=== PATIENT | female | born 1960 | race Caucasian/White ===

== ENCOUNTER 2022-08-19 05:55 | Day surgery (SDC) | payer BC ==
[~2022-08-19] VITALS: Ht 172.7 cm; Wt 75.0 kg
[~2022-08-19 05:55] MED LIST: ATENOLOL50 MG PO; CRINONE1.45 G1 VAGINAL; CYMBALTA30 MG PO; DHEA50 MG PO; ESTRADIOL0.5 MG PO; FIRST-TESTOSTER60 G1 TD; FISH OIL + D31 EACH PO; FISH OIL 1,0001 EAC2 NG; LORAZEPAM1 MG PO; METHOCARBAMOL500 MG PO; METOPROLOL SUCC25 MG PO; NORCO 5-325 TA1 EACH PO; PERCOCET 5-3251 EACH PO; TOPROL XL50 MG PO; VITAMIN D5000 UNIT PO; VOLTAREN100 GM TOP; ZANAFLEX4 MG PO
[2022-08-19] MEDS ORDERED: LEVOTHYROXINE25 MC1 PO (06:03)
--- NOTE | 2022-08-19 07:12 | NUR ---
C/O NAUSEA AND ZOFRAN GIVEN. SEE NEW ORDER.
--- NOTE | 2022-08-19 08:13 | NUR ---
08/19/22 0813 Araceli Francis 0809-PATIENT ARRIVED TO PACU ON RA RR EVEN. PATIENT REACTIVE TO VERBAL STIMULI OPENING EYES DENIES PAIN OR NAUSEA. RA 99%. SR. IVF INFUSING,. ABDOMEN SOFT.
--- NOTE | 2022-08-21 09:10 | OR ---
[facility] [address], [place] [address] Signed DATE OF OPERATION: 08/19/2022 SURGEON: Baron Gilbert MD PREOPERATIVE DIAGNOSES: 1. Personal history of colonic polyps, age 39 (1999). 2. Minimal internal hemorrhoids and associated skin tags. 3. Maternal grandfather, paternal grandmother, paternal aunt, father, all with colon cancer in her 70s. POSTOPERATIVE DIAGNOSES: 1. 4 mm polyps at 4 cm, 35 cm and 8 cm. 2. Minimal internal hemorrhoids with associated skin tags. PROCEDURE: Colonoscopy with hot biopsy. ESTIMATED BLOOD LOSS: None. INDICATIONS: Mandy is a 61-year-old female, who was asked to see me for a followup colonoscopy. 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 She went through five surgeries until she finally made it to the [facility] in [place], [place]. Dr. Micheline Meng performed the advancement flap and she has done well ever since. She underwent her first colonoscopy in 1999 at age of 39 while in [place], [place]. She had colonic polyps removed at that time. We do not have that pathology report. She has repeated the colonoscopy at age 42 in 2002, at age 45 in 2005 while in [place], [place], and both were negative. I then helped her at age 50 in 2010 where she had two small hyperplastic polyps removed and minimal internal hemorrhoid tissue. She came back in 2015 at the age of 55 and again had minimal internal hemorrhoid tissue with associated skin tags. However, she took an enormous amount of Versed and fentanyl, was awake, talking the whole time and moving around. Consequently, we have switched over to a monitored anesthesia care for Mandy. I think part of that is the lorazepam and tizanidine, she asked to take for her fibromyalgia and anxiety. Again, she used monitored anesthesia care today. She took multiple doses of propofol and eventually was relax and did well during the procedure. We had asked her to continue on the five-year follow up plan because of her family history. Again, we know she has an extensive family history as described above. She always uses Zofran during her prep. She was still nauseated this morning, so we gave her some additional Zofran Electronically Signed By: BARON GILBERT MD 08/21/22 0910 PATIENT NAME: MANDY HERNANDEZ ANN OPERATIVE REPORT DATE OF : 60 REPORT #: [id number] PHYSICIAN: BARON GILBERT MD PCP: EVERT TILLEY PAC REPORT IS CONFIDENTIAL AND NOT TO BE RELEASED WITHOUT AUTHORIZATION [facility] [address], [place] [address] Signed and she said it really helped. She really has no lower GI complaints. In the office, I had given her a pamphlet on colonoscopy. Of course, she is very familiar with that procedure at this time. There is risk including, but not limited to gas bloating, crampy abdominal pain, bleeding, perforation requiring surgery, and missed diagnosis. She had expressed understanding wished to proceed. PROCEDURE NOTE: Mandy was taken into our endoscopy suite and placed in the left lateral decubitus position. She was given monitored anesthesia care with propofol per our nurse cooperer. Again, she took multiple doses of the propofol and was quite comfortable throughout the procedure. A digital rectal exam was performed. She has good sphincter tone and no concerns for any significant external hemorrhoids. There were no masses. The adult colonoscope was introduced and advanced all around into the cecum under direct visualization of camera without difficulty. Her prep was good. We could easily see the appendiceal orifice and ileocecal valve. The scope was then slowly withdrawn. We had used a little extra propofol and abdominal compression to advance the scope into the cecum itself. As the scope was withdrawn, we took multiple photographs. The above-mentioned polyps were easily removed with the help of hot biopsy forceps. Once in the rectum, the scope had been retroflexed and she does have tiny internal hemorrhoid columns and small, so she had skin tags. After this, the gas was suctioned out, the colonoscope removed. Mandy tolerated the procedure quite well. RECOMMENDATIONS: Mandy will follow up in my office in 7 to 14 days to review her results. She will maintain the five-year rotation, given her strong family history. Baron Gilbert MD ALB/MODL /[id number] cc: MD Evert Mattson PA Electronically Signed By: BARON GILBERT MD 08/21/22 0910 PATIENT NAME: MANDY HERNANDEZ ANN OPERATIVE REPORT DATE OF : 60 REPORT #: [id number] PHYSICIAN: BARON GILBERT MD PCP: EVERT TILLEY [facility] REPORT IS CONFIDENTIAL AND NOT TO BE RELEASED WITHOUT AUTHORIZATION [facility] [address] [facility] [place], [place] [address] Signed Copies: BARON GILBERT MD ~ Electronically Signed By: BARNO GILBERT MD 08/21/22 0910 PATIENT NAME: MANDY HERNANDEZ ANN OPERATIVE REPORT DATE OF : 60 REPORT #: [id number] PHYSICIAN: BARON GILBERT MD PCP: EVERT TILLEY PAC REPORT IS CONFIDENTIAL AND NOT TO BE RELEASED WITHOUT AUTHORIZATION
--- NOTE | 2022-08-24 07:10 | PATH ---
[facility] [address] [place], [place] [address] Signed SPECIMEN(S): A COLON POLYP AT 4 CM SPECIMEN(S): B COLON POLYP AT 35 CM SPECIMEN(S): C COLON POLYP AT 8 CM SPECIMEN SOURCE: A. COLON POLYP AT 4 CM B. COLON POLYP AT 35 CM C. COLON POLYP AT 8 CM CLINICAL HISTORY: Colonoscopy. Family history of colon CA. Postop: Polyps, internal hemorrhoids. FINAL PATHOLOGIC DIAGNOSIS: A. Colon polyp at 4 cm: - Hyperplastic polyp (one fragment). B. Colon polyp at 35 cm: - Hyperplastic polyp (one fragment). C. Colon polyp at 8 cm: - Hyperplastic polyp (three fragments). JVR:[id number] MICROSCOPIC EXAMINATION: Histologic sections of all submitted blocks are examined by light microscopy. These findings, together with the gross examination, support the pathologic diagnosis. GROSS DESCRIPTION: Three specimens are received in three containers, labeled "LM." A. The specimen, labeled "LM, colon polyp at 4 cm," is received in formalin and consists of one quintero soft tissue fragment that measures 0.2 cm in greatest dimension. The specimen is entirely submitted in cassette (A1). B. The specimen, labeled "LM, colon polyp at 35 cm," is received in formalin and consists of one quintero soft tissue fragment that measures 0.1 cm in greatest dimension. The specimen is entirely submitted in cassette (B1). C. The specimen, labeled "LM, colon polyp at 8 cm," is received in formalin and consists of three quintero soft tissue fragments that measure 0.1-0.2 cm in greatest dimension. The specimen is entirely submitted in cassette (C1). PATIENT NAME: MERCEDES HERNANDEZ PATHOLOGY DATE OF : 60 REPORT #: [id number] PHYSICIAN: SANDEEP ESQUIVEL PCP: EVERT TILLEY PAC REPORT IS CONFIDENTIAL AND NOT TO BE RELEASED WITHOUT AUTHORIZATION [facility] [address] [place], [place] [address] Signed JS (under the direct supervision of a pathologist) The Gross Description was prepared using a voice recognition system. The report was reviewed for accuracy; however, sound-alike word errors, addition and/or deletions may occur. If there is any question about this report, please contact Client Services. PERFORMING LABORATORY: The technical component was performed by [facility], [address] [place] [id number] (CLIA# [id number]). Professional interpretation was performed by [facility], [address] [place] [id number] (CLIA#: [id number]). Diagnostician: Roe Sal MD Pathologist Electronically Signed 08/21/2022 Copies: ~ PATIENT NAME: MERCEDES HERNANDEZ PATHOLOGY DATE OF : 60 REPORT #: [id number] PHYSICIAN: SANDEEP PATHOLOGY PCP: EVERT TILLEY PAC REPORT IS CONFIDENTIAL AND NOT TO BE RELEASED WITHOUT AUTHORIZATION
== END 2022-08-19 08:45 | disposition home or self-care (01) ==
LOC: DS 05:55 → OPS 05:55 → DS 08:15 → OPS 08:15
PROVIDERS: ATTEND Colon & Rectal Surgery
PROC: 0DBE8ZX Excision of Large Intestine, Via Natural or Artificial Opening Endoscopic, Diagnostic (ICD-10-PCS; principal; 2022-08-19 07:30)
DX: Z12.11 Encounter for screening for malignant neoplasm of colon (principal); K63.5 Polyp of colon; Z80.0 Family history of malignant neoplasm of digestive organs; Z86.010 Personal history of colon polyps; I10 Essential (primary) hypertension; E78.5 Hyperlipidemia, unspecified; E03.9 Hypothyroidism, unspecified; K64.4 Residual hemorrhoidal skin tags; K64.0 First degree hemorrhoids; Z88.5 Allergy status to narcotic agent; Z88.8 Allergy status to other drugs, medicaments and biological substances
CPT/HCPCS: 00811; J2001; J2405; J2704; J7121

== ENCOUNTER 2023-10-07 18:19 | Emergency (ER) | payer BC ==
[~2023-10-07] VITALS: Ht 172.7 cm; Wt 74.8 kg
[~2023-10-07 18:19] MED LIST changes: +LEVOTHYROXINE25 MC1 PO
--- OUTSIDE RECORDS SUMMARY | 2023-10-07 18:20 | XMS ---
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 Cholo has no Care Guidelines for this patient. Alexandr VISIT COUNT (12 MO.) 1 [facility] TOTAL 1 NOTE: Visits indicate total known visits. ED/C VISIT TRACKING (12 MO.) 10/07/2023 18:19 [facility] Yoo [place] TYPE: Emergency COMPLAINT: - RAPID HEART RATE INPATIENT VISIT TRACKING (12 MO.) No inpatient visits to display in this time frame [email or web address]
[2023-10-07 18:56] LABS: BASOPHILS 0.5 % (0-2); EOSINOPHILS 3.6 % (0-6); HEMATOCRIT 40.4 % (35.0-50.0); HEMOGLOBIN 13.7 g/dL (12.0-18.0); LYMPHOCYTES 38.3 % (24-44); MCH 31.5 (27-36); MCHC 33.8 g/dl (30-36); MCV 93.2 fl (81-99); MONOCYTES 11.3 % (0-12); NEUTROPHILS 46.3 % (39-80); PLATELET COUNT 323 K/uL (140-440); RBC 4.33 M/ul (4.3-5.7); RDW 13.8 (10.5-15.0)
[2023-10-07 19:03] LABS: ALBUMIN 3.4 g/dL (3.4-5.0); ALBUMIN/GLOBULIN RATIO 0.71 (1.1-2.4); ANION GAP 15.6 (7-21); BILIRUBIN, TOTAL 0.2 ng/dL (0.2-1.0); BUN/CREATININE RATIO 17.07 (6.0-28.6); CALCIUM 9.3 mg/dL (8.5-10.1); CREATININE, SERUM 0.82 mg/dL (0.55-1.02); POTASSIUM 3.6 mmol/L (3.5-5.1); PROTEIN, TOTAL 8.2 g/dL (6.4-8.2)
[2023-10-07] MEDS ORDERED: ELIQUIS5 M1 PO (19:49)
[2023-10-07 20:25] VITALS: BP 129/62
--- NOTE | 2023-10-09 06:03 | EKG ---
[facility] [address] [facility] [place] [address] Signed Atrial fibrillation with rapid ventricular response ST depression in lateral leads ST \T\ T wave abnormality, consider inferolateral ischemia Abnormal ECG When compared with ECG of 12-AUG-2022 12:08, Atrial fibrillation has replaced Sinus rhythm Vent. rate has increased BY [address] now depressed in Lateral leads Inverted T waves have replaced nonspecific T wave abnormality in Inferior leads T wave inversion less evident in Anterior leads T wave inversion more evident in Lateral leads Confirmed by BONNY AGUILAR MD ([id number]) on 10/09/2023 6:03:03 AM Electronically Signed By: BONNY AGUILAR 10/09/23 0603 PATIENT NAME: MERCEDES HERNANDEZ ANN Electrocardiogram DATE OF : 60 PHYSICIAN: BONNY AGUILAR REPORT #: [id number] REPORT IS CONFIDENTIAL AND NOT TO BE RELEASED WITHOUT AUTHORIZATION
--- NOTE | 2023-10-09 06:06 | EKG ---
[facility] [address] [facility] [place] [address] Signed Normal sinus rhythm Nonspecific ST abnormality Abnormal ECG When compared with ECG of 07-OCT-2023 18:24, (Unconfirmed) Sinus rhythm has replaced Atrial fibrillation Vent. rate has decreased BY [address] no longer depressed in Lateral leads T wave inversion no longer evident in Inferior leads T wave inversion no longer evident in Lateral leads Confirmed by BONNY AGUILAR MD ([id number]) on 10/09/2023 6:05:58 AM Electronically Signed By: BONNY AGUILAR 10/09/23 0606 PATIENT NAME: MERCEDES HERNANDEZ ANN Electrocardiogram DATE OF : 60 PHYSICIAN: BONNY AGUILAR REPORT #: [id number] REPORT IS CONFIDENTIAL AND NOT TO BE RELEASED WITHOUT AUTHORIZATION
== END 2023-10-07 20:29 | disposition home or self-care (01) ==
LOC: ED 18:19
PROVIDERS: Emergency Medicine
DX: I48.0 Paroxysmal atrial fibrillation (principal); I10 Essential (primary) hypertension; Z88.8 Allergy status to other drugs, medicaments and biological substances; Z88.5 Allergy status to narcotic agent; Z79.899 Other long term (current) drug therapy
CPT/HCPCS: 36415; 71045; 80053; 84443; 84484; 85025; 93005; 93010; 96374; 99285-25; J7121; U0002

== ENCOUNTER 2023-10-09 14:38 | Inpatient (IN) | payer BC ==
[~2023-10-09] VITALS: Ht 172.7 cm; Wt 77.0 kg
[2023-10-09] VITALS (7 sets, daily range): BP systolic 106–152; BP diastolic 57–94
[~2023-10-09 14:38] MED LIST changes: +ELIQUIS5 M1 PO; -LORAZEPAM1 MG PO; -VITAMIN D5000 UNIT PO
--- OUTSIDE RECORDS SUMMARY | 2023-10-09 14:40 | XMS ---
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 Cholo has no Care Guidelines for this patient. Alexandr [facility] MO.) [facility] NOTE: Visits indicate total known visits. ED/C VISIT TRACKING (12 MO.) 10[facility]09[facility]2023 14:38 [facility] COMPLAINT: - CHEST PAIN 10/07/2023 18:[address] [facility] OR TYPE: Emergency COMPLAINT: - RAPID HEART RATE DIAGNOSES: - Allergy status to narcotic agent - Allergy status to other drugs, medicaments and biological substances - Essential (primary) hypertension - Other penitentiary (current) drug therapy - Palpitations - Paroxysmal atrial fibrillation INPATIENT VISIT TRACKING (12 MO.) No inpatient visits to display in this time frame [email or web address]
[2023-10-09 14:52] LABS: BASOPHILS 0.7 % (0-2); EOSINOPHILS 2.7 % (0-6); HEMATOCRIT 40.8 % (35.0-50.0); HEMOGLOBIN 13.8 g/dL (12.0-18.0); LYMPHOCYTES 36.3 % (24-44); MCH 31.5 (27-36); MCHC 33.9 g/dl (30-36); MCV 92.9 fl (81-99); MONOCYTES 10.9 % (0-12); NEUTROPHILS 49.4 % (39-80); PLATELET COUNT 313 K/uL (140-440); RBC 4.39 M/ul (4.3-5.7); RDW 13.9 (10.5-15.0)
[2023-10-09 15:02] LABS: INR 1.06 (0.80-1.30); PROTIME 13.3 Sec (11.2-14.2)
[2023-10-09 15:13] LABS: ALBUMIN 3.6 g/dL (3.4-5.0); ALBUMIN/GLOBULIN RATIO 0.75 (1.1-2.4); ALKALINE PHOSPHATASE 118 U/L (46-116); ALT (SGPT) 40 U/L (14-59); ANION GAP 14.9 (7-21); AST (SGOT) 22 U/L (15-37); BILIRUBIN, TOTAL 0.2 ng/dL (0.2-1.0); BUN/CREATININE RATIO 17.07 (6.0-28.6); CALCIUM 9.6 mg/dL (8.5-10.1); CARBON DIOXIDE 26 mmol/L (21-32); CHLORIDE 100 mmol/L (98-107); CREATININE, SERUM 0.82 mg/dL (0.55-1.02); GLOMERULAR FILTRATION RATE,EST 81 mL/min (>60); POTASSIUM 3.9 mmol/L (3.5-5.1); PROTEIN, TOTAL 8.4 g/dL (6.4-8.2); UREA NITROGEN 14 mg/dL (7-18)
[2023-10-09 17:42] LABS: INFLUENZA B NAA NEGATIVE (NEGATIVE); RESPIRATORY SYNCYTIAL VIR NAA NEGATIVE (NEGATIVE)
--- NOTE | 2023-10-09 18:58 | NUR ---
PT ASSISTED TO COMMODE SBA AND BACK TO BED. PT TOLERATED WELL. PT BACK IN BED WITH CALL LIGHT WITHIN REACH AND BELONGINGS AT BEDSIDE. NO FURTHER NEEDS AT THIS TIME.
--- NOTE | 2023-10-09 18:58 | NUR ---
PATIENT ADMITTED TO CCU FOR AFIB W/RVR AROUND 1830. PT ABLE TO STAND AND PIVOT SELF TO CCU BED. PT ON DILT GTT UPON ARRIVAL TO 17.5 MG/HR. PT REMAINS IN AFIB, HR IRRATIC, 110-160s. PT DENIES SHORTNESS OF BREATH. PT DOES REPORT THAT SHE FREQUENTLY HAS "PASSING OUT" SPELLS AT HOME. PT'S RUPA IS WITH PATIENT UPON ARRIVAL. PT ORIENTED TO ROOM. TURKEY SANDWICH BOX PROVIDED. PT UP TO BSC TO VOID X2 AND REPORTS FREQ URINATION. WILL CONTINUE TO MONITOR.
--- NOTE | 2023-10-09 19:26 | NUR ---
REPORT RECEIVED FROM YONI STEEN. PT IS RESTING IN BED AWAKE WITH AT BEDSIDE. CARDIZEM DRIP INFUSING INTO LAC AT 17.5MG/HR- RATE TURNED DOWN TO 15MG/HR PT IS BEGINNING TO HAVE SOME PAUSES. PT C/O HEADACHE, WILL GET HER SOME TYLENOL.
--- NOTE | 2023-10-09 19:33 | NUR ---
TYLENOLL GIVEN FOR HEADACHE, PLAN OF CARE FOR THE NIGHT DISCUSSED. PT REQUESTS TO TAKE OTHER MEDICATIONS AT 2300.
--- NOTE | 2023-10-09 20:22 | NUR ---
ASSESSMENT DONE, PT GIVEN WASHCLOTH AND TOOTHBRUSH FOR PM CARES.HR 80-100'S, WILL TITRATE CARDIZEM DOWN.
--- NOTE | 2023-10-09 22:00 | NUR ---
PT GIVEN HS MEDS NOW PER REQUEST, WANTING TO TRY TO GO TO SLEEP NOW, LEAVING FOR THE NIGHT WELL.
[2023-10-10] VITALS (11 sets, daily range): BP systolic 102–129; BP diastolic 57–87
--- NOTE | 2023-10-10 01:13 | NUR ---
PT HAVING MORE FREQUENT PAUSES, PT WAS SYMPTOMATIC WITH THE LAST ONE, STATES "I FELT BLACK GO ACCROSS MY FACE". MONIK ZHENG PUT ON STANDBY AND DR AGUILAR NOTIFIED. UPDATED ON CURRENT RATE/RHYTHM. RATE IS MOSTLY 90-100'S, OCCASIONALLY STILL JUMPTING UP TO 120'S AFIB/FLUTTER. NO NEW ORDERS AT THIS TIME, WILL CONT TO MONITOR AND NOTIFIY MD IF HR SUSTAINS OVER 120. PT CURRENTLY AWAKE IN BED, READING, NO REQUESTS.
--- NOTE | 2023-10-10 03:06 | NUR ---
HR HAS BEEN CONSISTENTLY IN THE 140'S, AFIB, DR AGUILAR NOTIFIED, ORDER TO RESTART CARDIZEM DRIP, STARTED DRIP AT 2.5MG/HR. PT UP TO BSC TO VOID AND BACK TO BED, HR UP TO 150'S WHEN UP. PT DENIES SX OTHER THAN "I CAN FEEL MY HEART JUMPTING AROUND".
--- NOTE | 2023-10-10 05:00 | NUR ---
PT HAS GONE INTO SINUS RHYTHM, SUSTAINED WITH HR 70'S. CARDIZEM DRIP REMAINS AT 2.5MG/HR. PT NO LONGER HAVING FREQUENT PAUSES.
[2023-10-10 05:16] LABS: BASOPHILS 0.6 % (0-2); HEMATOCRIT 38.5 % (35.0-50.0); HEMOGLOBIN 12.7 g/dL (12.0-18.0); LYMPHOCYTES 40.7 % (24-44); MCH 30.7 (27-36); MCHC 32.9 g/dl (30-36); MCV 93.2 fl (81-99); MONOCYTES 10.9 % (0-12); NEUTROPHILS 44.8 % (39-80); PLATELET COUNT 280 K/uL (140-440); RBC 4.13 M/ul (4.3-5.7); RDW 13.9 (10.5-15.0)
[2023-10-10 05:34] LABS: ANION GAP 13.9 (7-21); BUN/CREATININE RATIO 13.33 (6.0-28.6); CALCIUM 8.8 mg/dL (8.5-10.1); CREATININE, SERUM 0.75 mg/dL (0.55-1.02); POTASSIUM 3.9 mmol/L (3.5-5.1)
--- NOTE | 2023-10-10 06:41 | NUR ---
PT UP TO BSC TO VOID AND BACK TO BED, REPORTS FEELING BETTER, NO LONGER FEELING PALPITATIONS.
[2023-10-10] MEDS ORDERED: BENZONATATE200 MG PO (07:20)
[2023-10-10] MEDS ORDERED: IPRATROPIUM BRO15 ML NAS (07:25)
[2023-10-10] MEDS ORDERED: METOPROLOL SUC100 MG PO (07:26)
[2023-10-10] MEDS ORDERED: FLUOXETINE HCL10 MG PO (07:26)
[2023-10-10] MEDS ORDERED: LORAZEPAM2 MG PO (07:27)
[2023-10-10] MEDS ORDERED: IBUPROFEN800 MG PO (07:27)
[2023-10-10] MEDS ORDERED: ESTRADIOL1 MG PO (07:28)
[2023-10-10] MEDS ORDERED: TIZANIDINE HCL6 MG PO (07:29)
[2023-10-10] MEDS ORDERED: LEVOTHYROXINE25 MCG PO (07:30)
[2023-10-10] MEDS ORDERED: LORAZEPAM1 MG PO (07:31)
--- NOTE | 2023-10-10 07:39 | NUR ---
REPORT REC'D FROM DOUGH PUNCHER AND PLAN OF CARE RESUMES. PT IS SLEEPING AT THIS TIME. PT HAS BEEN OFF DILT GTT SINCE AROUND THE MIDDLE OF THE NIGHT. PT HAS BEEN IN SINUS RHYTHM SINCE 0600 AND HAS SUSTAINED. PT STILL RESTING AND WILL PERFORM ASSESSMENT ONCE SHE IS AWAKE.
--- NOTE | 2023-10-10 08:05 | NUR ---
DR. AGUILAR IN ROOM TO SEE PATIENT AND DISCUSS PLAN OF CARE. PT TO STAY TODAY, WITH POTENTIAL D/C HOME TOMORROW. PT TO BE STARTED ON ORAL CARDIZEM AND THEN SWITCHED TO A LONG ACTING TOMORROW. PT TRANSITIONED TO A TELE AND GIVEN SOME INDEPENDENCE IN THE ROOM. PT UP TO CHAIR TO EAT. PT'S RUPA IN ROOM WELL.
[2023-10-10] MEDS ORDERED: VITAMIN D325 MCG PO (08:29)
[2023-10-10] MEDS ORDERED: FLONASE ALLERG9.9 ML NAS (08:29)
[2023-10-10] MEDS ORDERED: TIZANIDINE HCL2 M1 PO (08:30)
--- NOTE | 2023-10-10 09:24 | NUR ---
PT REPORTS NAUSEA. PRN MEDICATION GIVEN, WELL A COLD WASH CLOTH TO THE BACK OF HER NECK. PT HAS NOT HAD ANY EMESIS, AND AFTER A FEW MINUTES SEEMS TO BE DOING A LITTLE BETTER WITH NAUSEA. WILL CONTINUE TO MONITOR.
[2023-10-10] MEDS ORDERED: ELIQUIS5 MG PO (09:57)
--- NOTE | 2023-10-10 09:59 | NUR ---
medications reconciled using pharmacy records and patient interview. patient is weaning herself off of duloxetine very slowly
--- NOTE | 2023-10-10 11:43 | NUR ---
PATIENT AMBULATES IN HALLWAYS WITH HER AROUND 1100 AND DENIES FEELING DIZZY THIS TIME. HR 80-100 SINUS, AND NO FURTHER SIGNS OF AFIB NOTED. ASSESSMENT COMPLETE. DISCUSSED WITH PATIENT HER NOTED URINE SMELL, AND PT REPORTS THAT SHE AND HER NOTICED A BAD SMELL YESTERDAY, CONTINUING INTO TODAY. PT REPORTS A PRESSURE LIKE FEELING WHEN URINATING, AND FREQUENCY. CLEAN HAT PLACED IN TOILET AND WIPES PROVIDED FOR A URINE SAMPLE. PT REPORTS HAVING A HEADACHE STILL, AND WILL OFFER PRN TYLENOL. PT NOTES THIS MAY BE DUE TO HER NECK. WILL CONTINUE TO MONITOR.
[2023-10-10 13:51] LABS: BILIRUBIN, URINE NEGATIVE (negative); BLOOD/HGB, URINE TRACE-I (Negative); KETONE, URINE TRACE (Negative); LEUK ESTERASE, URINE NEGATIVE (negative); NITRITE, URINE POSITIVE (negative); PH, URINE 5.5 (5-7)
[2023-10-10 13:56] LABS: BACTERIA, URINE 1+ /hpf (negative); CASTS, URINE NONE SEEN \\lpf; COLLECTION TYPE, URINE CLEAN CATCH; CRYSTALS, URINE NONE SEEN (0-1+); EPITHELIAL CELLS, URINE SQUAMOUS 2+ /lpf (0-1+); RED BLOOD CELLS, URINE 0-1 /hpf (0-5); REFLEX CULTURE, URINE No (No)
--- NOTE | 2023-10-10 14:15 | NUR ---
REPORT GIVEN TO CELSA HURTADO WHO WILL RESUME CARE OF PATIENT ON MED/SURG. PT TO TRANSFER AROUND 1500.
--- NOTE | 2023-10-10 14:23 | NUR ---
PATIENT UP TO VOID AND C/O FEELING THE URGENCY AND FREQUENCY STILL. PT VOIDED 200 ML YELLOW URINE THAT DID APPEAR MORE CLEAR THAN EARLIER. BLADDER SCANNED FOR 0 ML. PT REPORTS SHE HAS HAD A "SLING" IN THE PAST. PT ALSO C/O HEADACHE AND GIVEN TYLENOL PER EMAR. PT INFORMED THAT SHE WILL BE MOVED TO [facility] AROUND 1500. PT'S HAS LEFT FOR A WHILE BUT WILL RETURN.
--- NOTE | 2023-10-10 15:45 | NUR ---
PATIENT TRANSFERRED TO THE MEDICAL FLOOR, ROOM 113, BY AMBULATING TO [facility]. ALL PERSONAL BELONGINGS TAKEN WITH PATIENT. PT'S ALSO BACK AND WALKS WITH PATIENT TO NEW ROOM. PT DENIES DIZZYNESS OF SHORTNESS OF BREATH.
--- NOTE | 2023-10-10 15:49 | NUR ---
PT TO ROOM FROM CCU FAMILY PRESENT X2. RESTING IN BED ALERT AND INTERACTIVE. AGREES TYLENOL WAS EFFECTIVE FOR HER HEADACHE. FRESH H20 TO BEDSIDE CALL LIGHT AND NEEDED ITEMS IN REACH. DENIES NEEDS OF AT THIS TIME
--- NOTE | 2023-10-10 17:22 | NUR ---
PT REPORTS BEING HUNGRY, REGULAR DIET CONFIRMED WITH DR MOSLEY AND FOOD PROVIDED. SITTING UP IN BED AT THIS TIME AGREES HER HEADACH IS "SO MUCH BETTER" STILL RATES A 3 5 BEING THE GOAL. CALL LIGHT AND NEEDED ITEMS ON TABLE SIDE. PT ORIENTED TO ROOM HAS STAYED HERE BEFORE. MENU AND PERSONAL ITEMS PROVIDED.
--- NOTE | 2023-10-10 17:25 | NUR ---
PT TO THE SHOWER INDEPENDANTLY, REMAINS IN THE ROOM. BACK TO THE BED WITH EVENING MEAL. DENIES CP OR OTHER DISCOMFORTS.
--- NOTE | 2023-10-10 19:14 | NUR ---
REPORT RECEIVED FROM DAY SHIFT RN. PT LYING IN BED ALERT AND ORIENTED. DENIES NEEDS. WHITE BOARD UPDATED. CALL LIGHT IN REACH.
--- NOTE | 2023-10-10 20:17 | NUR ---
EVENING ASSESSMENT COMPLETE. SCHEDULED MEDS ADMIN PER EMAR. PT DENIES PAIN OR NAUSEA. DENIES CHEST PAIN OR PALPITATIONS. TELE #[address] NSR[address] HR 70'S. PT DENIES QUESTIONS OR CONCERNS. WARM BLANKET PROVIDED. CALL LIGHT IN REACH.
--- NOTE | 2023-10-10 22:10 | NUR ---
PT AWAKE IN BED. SCHEDULED MEDS ADMIN PER EMAR. PT DENIES NEEDS. CALL LIGHT IN REACH.
[2023-10-11 01:39] VITALS: BP 101/50
--- NOTE | 2023-10-11 01:44 | NUR ---
PT RESTING WITH EYES CLOSED. AWAKENS EASILY. VS OBTAINED. BLOOD PRESSURE OUT OF PARAMETERS, MEDS HELD PER ORDER. PT DENIES PAIN OR NASUEA. NO FURTHER NEEDS.
--- NOTE | 2023-10-11 03:58 | NUR ---
PT RESTING IN BED WITH EYES CLOSED. RESPIRATIONS EVEN. TELE #4. HR 70'S. NSR. CALL LIGHT IN REACH.
[2023-10-11 05:23] LABS: BASOPHILS 0.7 % (0-2); HEMATOCRIT 35.6 % (35.0-50.0); HEMOGLOBIN 11.8 g/dL (12.0-18.0); LYMPHOCYTES 40.1 % (24-44); MCH 30.7 (27-36); MCV 92.9 fl (81-99); MONOCYTES 11.2 % (0-12); PLATELET COUNT 267 K/uL (140-440); RBC 3.83 M/ul (4.3-5.7); RDW 13.9 (10.5-15.0)
[2023-10-11 05:32] VITALS: BP 131/62
[2023-10-11 05:43] LABS: ANION GAP 12.1 (7-21); BUN/CREATININE RATIO 19.71 (6.0-28.6); CALCIUM 8.8 mg/dL (8.5-10.1); CREATININE, SERUM 0.71 mg/dL (0.55-1.02); POTASSIUM 4.1 mmol/L (3.5-5.1)
--- NOTE | 2023-10-11 05:53 | NUR ---
PT AWAKE IN BED. VS AND I&O OBTAINED. SCHEDULED MEDS ADMIN PER EMAR. PT DENIES NEEDS. CALL LIGHT IN REACH.
--- NOTE | 2023-10-11 05:54 | EKG ---
[facility] [address] [facility] [place] [address] Signed Atrial fibrillation Nonspecific ST and T wave abnormality Abnormal ECG When compared with ECG of 09-OCT-2023 16:16, (Unconfirmed) Nonspecific T wave abnormality, improved in Inferior leads Nonspecific T wave abnormality has replaced inverted T waves in Anterior leads Confirmed by BONNY AGUILAR MD ([id number]) on 10/11/2023 5:54:44 AM Electronically Signed By: BONNY AGUILAR 10/11/23 0554 PATIENT NAME: MERCEDES HERNANDEZ ANN Electrocardiogram DATE OF : 60 PHYSICIAN: BONNY AGUILAR REPORT #: [id number] REPORT IS CONFIDENTIAL AND NOT TO BE RELEASED WITHOUT AUTHORIZATION
--- NOTE | 2023-10-11 05:54 | EKG ---
[facility] [address] [facility] [place], [place] [address] Signed Atrial fibrillation with rapid ventricular response Marked ST abnormality, possible inferior subendocardial injury Abnormal ECG No previous ECGs available Confirmed by BONNY AGUILAR MD ([id number]) on 10/11/2023 5:54:22 AM Electronically Signed By: BONNY AGUILAR 10/11/23 0554 PATIENT NAME: MERCEDES HERNANDEZ ANN Electrocardiogram DATE OF : 60 PHYSICIAN: BONNY AGUILAR REPORT #: [id number] REPORT IS CONFIDENTIAL AND NOT TO BE RELEASED WITHOUT AUTHORIZATION
[2023-10-11 06:27] VITALS: BP 133/68
--- NOTE | 2023-10-11 06:33 | NUR ---
CALL LIGHT ANSWERD. PT REPORTS SHE FEELS "FUZZY" REPORTS SHE HAD BEEN UP TO THE BATHROOM AND HAD A BRIEF MOMENT OF DIZZINESS, SOB, AND CHEST TIGHTNESS. PT REPORTS SHE HAS EXPERIENCED SIMILAR SYMPTOMS IN THE PAST AND ATTRIBUTES THEM TO ANXIETY. PT REPORTS SHE HAS PRN ANXIETY MEDICATION AT HOME. REPORTS SX ARE RESOLVING AND DOES NOT WANT THIS RN TO CALL MD AT THIS TIME. VS WNL. TELE #[address] NSR. HR 70'S.
[2023-10-11] MEDS ORDERED: DILTIAZEM 24HR120 MG PO (06:59)
--- NOTE | 2023-10-11 07:13 | NUR ---
NEW ORDERS FOR CARDIZEM CAME THROUGH ON JAN DISCUSSED WITH DR MOSLEY. CLARIFICATION 120 MG TO BE GIVEN AT 0700 ONLY NOT ADDITIONAL AT 0900
--- NOTE | 2023-10-11 07:24 | NUR ---
PT AWAKE AND INTERACTIVE AT SHIFT REPORT. JUST RETURNING FROM THE BATHROOM INDEPENDANTLY PT RETURNS TO REST IN BED, IS PRESENT. PT STATES SHE FEELS WELL THIS MORNING AND IS WITHOUT S/S. TELE READS SINUS. FRESH H20 TO BEDSIDE CARDIZEM ADMINISTERED ORDERED. PT DENIES OTHER NEEDS AT THIS TIME.
[2023-10-11] MEDS ORDERED: CEPHALEXIN500 MG PO (07:38)
--- NOTE | 2023-10-11 08:04 | NUR ---
DR MOSLEY IN TO SEE PT ALL QUESTIONS ANSWERED. PT IS CONTACTING PCP FOR REFERRAL TO [facility] AND MAKING ARRANGEMENTS FOR AFTER CARE.
[2023-10-11 08:50] VITALS: BP 136/61
== END 2023-10-11 08:55 | disposition home or self-care (01) | DRG 310 ==
LOC: ED 14:38 → CCU 17:45 → MS 10-10 15:40
PROVIDERS: Family Medicine; ADMIT Family Medicine; ATTEND Family Medicine
PROC: 5A2204Z Restoration of Cardiac Rhythm, Single (ICD-10-PCS; principal; 2023-10-09)
DX: I48.0 Paroxysmal atrial fibrillation (principal); M79.7 Fibromyalgia; I10 Essential (primary) hypertension; E03.9 Hypothyroidism, unspecified; R35.0 Frequency of micturition; Z90.710 Acquired absence of both cervix and uterus; Z98.890 Other specified postprocedural states; Z88.5 Allergy status to narcotic agent; Z88.8 Allergy status to other drugs, medicaments and biological substances; Z79.01 Long term (current) use of anticoagulants; Z79.899 Other long term (current) drug therapy; Z79.890 Hormone replacement therapy; Z11.52 Encounter for screening for COVID-19
CPT/HCPCS: 36415; 80048; 80053; 81001; 83735; 83880; 84484; 85025; 85379; 85610; 87502; 93005; 93010; A9270; A9270-GY; C9803; J3490; J7121; U0002